=== PATIENT | male | born 1980 | race Caucasian/White ===

== ENCOUNTER 2017-06-18 00:22 | Emergency (ER) | payer OTHER ==
[~2017-06-18] VITALS: Ht 180.3 cm; Wt 107.0 kg
[~2017-06-18 00:22] MED LIST: GLIPIZIDE; INSU100I4 SQ; INSU3INS8 SQ; LISINOPRIL; OMEPRAZOLE; SIMVASTATIN
[2017-06-18] MEDS ORDERED: KETOROLAC 30MG/ML VIAL IV STA (00:58)
[2017-06-18] MEDS ORDERED: FAMOTIDINE 20MG/2ML VIAL IV STA (00:58)
[2017-06-18] MEDS ORDERED: ONDANSETRON HCL 4MG/2ML VIAL IV STA (00:58)
[2017-06-18 01:49] LABS: BASOPHILS % 0.3 % (0.0-2.0); EOSINOPHILS % 1.4 % (0.0-5.0); HEMATOCRIT. 45.1 % (42.0-52.0); HEMOGLOBIN. 15.2 g/dL (14.0-18.0); LYMPHOCYTES % 26.5 % (20.0-50.0); MEAN CORPUSCULAR HEMOGLOBIN 28.7 pg (28.0-32.0); MEAN PLATELET VOLUME 9.1 fl (7.4-10.4); MONOCYTES % 8.5 % (2.0-8.0); NEUTROPHILS % 63.3 % (40.0-76.0); PLATELET 166 x1000/uL (130-400); RED BLOOD CELL COUNT 5.31 mill/uL (4.7-6.1); RED CELL DISTRIBUTION WIDTH 13.4 % (11.6-14.6)
[2017-06-18 01:51] LABS: CHLORIDE 102 mEq/L (98-107)
[2017-06-18 01:53] LABS: PROTHROMBIN TIME 10.3 sec (9.4-11.6)
[2017-06-18 02:09] LABS: CLARITY URINE CLEAR (CLEAR); COLOR URINE YELLOW (YELLOW); KETONES URINE TRACE (NEGATIVE); LEUKOCYTE ESTERASE URINE NEGATIVE (NEGATIVE); NITRITE URINE NEGATIVE (NEGATIVE); OCCULT BLOOD URINE 1+ (NEGATIVE); PROTEIN URINE 2+ (NEGATIVE); SPECIFIC GRAVITY URINE 1.023 (1.005-1.030)
[2017-06-18] MEDS ORDERED: IOHEXOL-300 100 ML BOTTLE ONE (02:39)
[2017-06-18 03:48] VITALS: BP 114/81
== END 2017-06-18 03:48 | disposition home or self-care (01) ==
LOC: ER 00:48
DX: R10.11 Right upper quadrant pain (principal); R11.2 Nausea with vomiting, unspecified; I10 Essential (primary) hypertension; E78.00 Pure hypercholesterolemia, unspecified; E11.9 Type 2 diabetes mellitus without complications; Z79.4 Long term (current) use of insulin
CPT/HCPCS: 36415; 74177; 76705; 80053; 81003; 83690; 85025; 85610; 85730; 96374; 96375; 99285; J1885; J2405; J3490; Q9967